=== PATIENT | male | born 1985 | race Caucasian/White ===

== ENCOUNTER 2019-03-04 10:46 | Emergency (ER) | payer SELFPAY | END 2019-03-04 12:00 | disposition left against medical advice (07) | LOC: FTE 12:00 | DX: Z53.21 Procedure and treatment not carried out due to patient leaving prior to being seen by health care provider (principal) | CPT/HCPCS: 82962 ==

== ENCOUNTER 2019-03-06 10:07 | Emergency (ER) | payer OTHER ==
[2019-03-06] MEDS ORDERED: morphine 4 MG/ML VIAL (10:53)
[2019-03-06] MEDS ORDERED: ONDANSETRON 4 MG INJ (10:53)
[2019-03-06] MEDS: ONDANSETRON 4 MG INJ IV (10:59)
[2019-03-06] MEDS: morphine 4 MG/ML VIAL IV (10:59)
[2019-03-06] MEDS: ACETAMINOPHEN 500 MG TAB PO (11:33)
[2019-03-06] MEDS: IOHEXOL 300MG/ML 150 ML BTL (12:15)
[2019-03-06] MEDS: SOD CHLORIDE 0.9% 100 ML (12:15)
== END 2019-03-06 13:19 | disposition home or self-care (01) ==
LOC: E/R 10:07
DX: J32.9 Chronic sinusitis, unspecified (principal); Z87.891 Personal history of nicotine dependence
CPT/HCPCS: 36415; 70470; 70480; 80048; 85025; 85610; 85730; 96374; 96375; 99285-25